=== PATIENT | female | born 1990 | race Caucasian/White ===

== ENCOUNTER 2019-04-15 12:12 | Emergency (ER) | payer MEDICAID ==
[~2019-04-15] VITALS: Ht 167.6 cm; Wt 56.0 kg
[2019-04-15 12:20] VITALS: Ht 167.6 cm; Wt 56.0 kg
[2019-04-15 14:36] VITALS: BP 134/81
== END 2019-04-15 14:36 | disposition home or self-care (01) ==
LOC: ED 12:12
DX: F41.9 Anxiety disorder, unspecified (principal); F32.9 Major depressive disorder, single episode, unspecified; R11.10 Vomiting, unspecified